=== PATIENT | male | born 1975 | race Two or more races ===

== ENCOUNTER 2019-02-01 21:26 | Emergency (ER) | payer MEDICAID ==
[~2019-02-01] VITALS: Ht 167.6 cm; Wt 85.3 kg
--- NOTE | 2019-02-01 21:45 | NUR ---
AT BEDSIDE FOR HISTORY AND PHYSICAL PT SMILING AND PLEASANT RADHA MARLEY IN LOC
--- NOTE | 2019-02-01 22:30 | NUR ---
Patient discharged to home in stable conditon. Written and verbal after care instructions given. Patient verbalizes understanding of instructions. AMBULATORY W/ STABLE GAIT ALL BELONGINGS W/ PT
[2019-02-01 22:36] VITALS: BP 128/105
== END 2019-02-01 22:36 | disposition home or self-care (01) ==
LOC: ER 21:26
DX: S16.1XXA Strain of muscle, fascia and tendon at neck level, initial encounter (principal); X58.XXXA Exposure to other specified factors, initial encounter; Y93.A1 Activity, exercise machines primarily for cardiorespiratory conditioning; Y92.89 Other specified places as the place of occurrence of the external cause; Y99.8 Other external cause status
CPT/HCPCS: A4663